=== PATIENT | female | born 1965 | race Caucasian/White ===

== ENCOUNTER 2017-09-24 17:52 | Emergency (ER) | payer OTHER, BC ==
[~2017-09-24] VITALS: Ht 162.6 cm; Wt 61.0 kg
[2017-09-24 18:10] VITALS: TEMP 37.1; Ht 162.6 cm; Wt 61.0 kg
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
[2017-09-24 20:50] VITALS: BP 158/107; PULSE 99; O2SAT 100
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
[2017-09-24 21:07] LABS: BASO % 0.2 %; BASO ABS # 0.03 K/uL (0-0.2); EOS % 0.4 %; EOS ABS # 0.05 K/uL (0-0.5); HEMATOCRIT 44.3 % (37-47); HEMOGLOBIN 15.9 g/dL (12.0-16.0); IG# 0.04 K/uL (0.00-0.02); LYMPH ABS # 1.22 K/uL (1.2-3.4); MEAN CELL VOLUME 90.4 fL (80-100); MEAN CORPUSCULAR HEMOGLOBIN 32.4 pg (25-34); MEAN CORPUSCULAR HGB CONC 35.9 g/dl (32-36); MEAN PLATELET VOLUME 10.1 fL (7.4-10.4); MONO % 4.8 %; MONO ABS # 0.65 K/uL (0.11-0.59); NEUT % 85.3 %; NEUT ABS # 11.57 K/uL (1.4-6.5); PLATELET COUNT 267 K/uL (130-400); RED CELL DISTRIBUTION WIDTH CV 12.6 % (11.5-14.5); RED CELL DISTRIBUTION WIDTH SD 41.8 fL (36.4-46.3); WHITE BLOOD COUNT 13.56 K/uL (4.8-10.8)
[2017-09-24 21:12] LABS: CALCIUM 9.6 mg/dl (8.5-10.1); CREATININE 0.78 mg/dl (0.60-1.20); POTASSIUM 3.6 mmol/L (3.5-5.1)
[2017-09-24 21:20] LABS: PTT PATIENT 25.8 SECONDS (21.0-31.0)
== END 2017-09-24 21:15 | disposition short-term general hospital (02) ==
LOC: C.EDB 17:55 → C.EDD 21:15
DX: S06.5X0A Traumatic subdural hemorrhage without loss of consciousness, initial encounter (principal); M54.2 Cervicalgia; V43.52XA Car driver injured in collision with other type car in traffic accident, initial encounter

== ENCOUNTER → 2017-10-24 | Outpatient (CLI) | payer OTHER, BC ==
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
== END | disposition home or self-care (01) ==
LOC: C.RAD 12:59
PROVIDERS: ATTEND Neurological Surgery
DX: M54.2 Cervicalgia (principal)